=== PATIENT | female | born 2000 | race Caucasian/White ===

== ENCOUNTER 2020-11-29 06:39 | Emergency (ER) | payer BC ==
--- NOTE | 2020-11-29 13:48 | EDM.PDOC ---
ED HPI GENERAL MEDICAL PROBLEM - General Chief Complaint: ENT Problem Stated Complaint: FACIAL PAIN Time Seen by Provider: 11/29/20 07:00 Source of Information: Reports: Patient History Limitations: Reports: No Limitations - History of Present Illness INITIAL COMMENTS - FREE TEXT/NARRATIVE: Pt. presents to ER with complaints of L sided lower dental pain. Pt. states that the discomfort has been intermittent. Denies any fever or chills. No recent oral trauma. Pt. denies any cavities or tooth decay in this area. No swelling to the hypopharynx. No sore throat or rhinorrhea. Pt. uses [facility]. She thinks the cause of the discomfort may be wisdom teeth coming in. Onset: Today Onset Date: 11/29/20 Location: Reports: Face Treatments MANUFACTURING INTERN: Reports: NSAIDS Right Lower Tooth/Teeth Pain Score (Numeric/FACES): 7 Social & Family History - Tobacco Use Tobacco Use Status *Q: Current Every Day Tobacco User Years of Tobacco use: 5 Packs/Tins Daily: 1 - Recreational Drug Use Recreational Drug Use: Yes Recreational Drug Type: Reports: Marijuana/Hashish ED ROS GENERAL - Review of Systems Review Of Systems: See Below Constitutional: Reports: No Symptoms HEENT: Reports: Dental Pain Respiratory: Reports: No Symptoms Cardiovascular: Reports: No Symptoms Endocrine: Reports: No Symptoms GI/Abdominal: Reports: No Symptoms : Reports: No Symptoms Musculoskeletal: Reports: No Symptoms Skin: Reports: No Symptoms Neurological: Reports: No Symptoms Psychiatric: Reports: No Symptoms Hematologic/Lymphatic: Reports: No Symptoms Immunologic: Reports: No Symptoms ED EXAM, GENERAL - Physical Exam Exam: See Below Exam Limited By: No Limitations General Appearance: Alert, WD/WN, No Apparent Distress Nose: Normal Inspection, Normal Mucosa, No Blood Throat/Mouth: Normal Inspection, Normal Teeth, Normal Gums, Normal Oropharynx, Normal Voice, No Airway Compromise, Other (No evidence of tooth decay, cavity, infection, or abscess from the area. [place] tooth is partially visible. ) Course - Vital Signs Last Recorded V/S: Last Vital Signs Temp 36.9 C 11/29/20 06:53 Pulse 70 11/29/20 06:53 Resp 14 11/29/20 06:53 BP 121/81 11/29/20 06:53 Pulse Ox 98 11/29/20 06:53 Departure - Departure Time of Disposition: 07:30 Disposition: Home, Self-Care 01 Clinical Impression: Dental implant pain - Discharge Information Instructions: Acetaminophen; Codeine tablets Referrals: Glenna Galdamez DO [Primary Care Provider] - Forms: ED Department Discharge Additional Instructions: Follow-up with [facility]. It looks as though you have some wisdom teeth coming, but you need to have dental x-rays. Ibuprofen 200mg 4 tabs every 8 hours for pain Tylenol #3 1 every 6 hours as needed for severe pain Sepsis Event Note (ED) - Evaluation Sepsis Screening Result: No Definite Risk - Focused Exam Vital Signs: Vital Signs Temp Pulse Resp BP Pulse Ox 11/29/20 06:53 36.9 C 70 14 121/81 98 - Problem List Review Problem List Initiated/Reviewed/Updated: Yes - Assessment/Plan Plan: There was no obvious infection noted so antibiotics were not started. Advised follow-up with [facility] for radiographs/further follow-up. Return to ER if she notices any redness, swelling, or other worrisome signs/symptoms.
== END 2020-11-29 07:20 | disposition home or self-care (01) ==
LOC: VM.ED 06:39
DX: T85.848A Pain due to other internal prosthetic devices, implants and grafts, initial encounter (principal); Z72.0 Tobacco use
CPT/HCPCS: 99282; 99283

== ENCOUNTER 2021-10-30 02:26 | Emergency (ER) | payer OTHER ==
[2021-10-30] MEDS ORDERED: HYDROmorphone 1 MG/ML Syringe SUBCUT ONE (02:38)
[2021-10-30] MEDS ORDERED: Ketorolac 30 MG/ML SDV IM ONE (02:38)
== END 2021-10-30 03:10 | disposition home or self-care (01) ==
LOC: VM.ED 02:26
DX: G89.29 Other chronic pain (principal); M25.551 Pain in right hip; Z87.891 Personal history of nicotine dependence
CPT/HCPCS: 96372; 99283; J1170; J1885

== ENCOUNTER 2022-09-08 03:00 | Emergency (ER) | payer OTHER ==
[2022-09-08] MEDS ORDERED: Amoxicillin 875 MG Tab PO ONE (03:27)
== END 2022-09-08 03:40 | disposition home or self-care (01) ==
LOC: VM.ED 03:00
DX: J02.9 Acute pharyngitis, unspecified (principal)
CPT/HCPCS: 99282; 99283; A9270

== ENCOUNTER 2023-02-21 02:26 | Emergency (ER) | payer OTHER | END 2023-02-21 02:52 | disposition home or self-care (01) | LOC: VM.ED 02:26 | DX: N64.59 Other signs and symptoms in breast (principal) | CPT/HCPCS: 99283 ==

== ENCOUNTER 2023-11-30 21:23 | Emergency (ER) | payer OTHER | END 2023-11-30 22:14 | disposition home or self-care (01) | LOC: VM.ED 21:23 | DX: S63.616A Unspecified sprain of right little finger, initial encounter (principal); Z79.899 Other long term (current) drug therapy; W22.8XXA Striking against or struck by other objects, initial encounter | CPT/HCPCS: 73140-F9; 99283 ==